=== PATIENT | male | born 1965 | race African-American/Black ===

== ENCOUNTER → 2019-11-03 | Outpatient (CLI) | payer OTHER ==
--- NOTE | 2019-11-04 01:16 | REP ---
Clinical: Left knee pain. Technique: AP, lateral, bilateral oblique and sunrise views of the left knee. Findings: Moderate tricompartmental osteoarthritic degenerative changes include osteophytosis, subchondral sclerosis, joint space narrowing, chondrocalcinosis, and suspected suprapatellar effusion. No obvious acute fracture or dislocation. Impression: Moderate tricompartmental osteoarthritic degenerative changes. Electronically Signed by Norm Montano MD 11/04/2019 01:08 A
== END ==
LOC: M RAD 08:58
PROVIDERS: ATTEND Surgery
DX: M25.562 Pain in left knee (principal)